=== PATIENT | male | born 1980 | race Caucasian/White ===

== ENCOUNTER 2022-12-27 08:52 | Emergency (ER) | payer OTHER, SELFPAY ==
--- NOTE | ~2022-12-27 | XR_ITS ---
EXAMINATION: XR chest 2V DATE: 12/27/2022 09:27 INDICATION: Left-sided chest pain TECHNIQUE: PA and lateral views of the chest were obtained. COMPARISON: None FINDINGS: The lungs are clear with no focal airspace opacities, pulmonary edema, pleural effusion or pneumothor ax. The cardiomediastinal silhouette is normal. Mild thoracic spondylosis and mild anterior wedging o f a few lower thoracic vertebral bodies. IMPRESSION: 1. No acute cardiopulmonary disease. Reviewed, dictated and finalized at location B.
--- NOTE | 2022-12-27 08:54 | ED.NAVMDI ---
HPI - Nausea/Vomiting/Diarrhea General Chief complaint: Upper Respiratory Infection Stated complaint: L LUNG PAIN/VOMITING/STOMACH ACID/CRAMPING Time Seen by Provider: 12/27/22 08:53 Source: patient Mode of arrival: ambulatory Limitations: no limitations History of Present Illness HPI Narrative: Cb is a 42-year-old male patient presenting to the clinic today with complaints of left-sided lung pain, nausea, vomiting, diarrhea, upset stomach and abdominal cramping for over the past week. He reports nausea, vomiting, and diarrhea have improved. Has been doing a brat diet at home and last bowel movement was this morning and was relatively soft. He is more concerned today about the left-sided lung pain-pneumonia. States the pain is worse when he takes a deep breath. Pain is in the left front chest and radiates to the back. History of pneumonia in the past and states the pain is similar. No history of gall stones, cholecystitis, or pancreatitis. History of GERD-is taking Maalox and Protonix for his GERD symptoms. Denies any blood in his stool or emesis. Related Data Home Medications Medication Instructions Recorded Confirmed No Home Medications 12/27/22 12/27/22 Allergies Allergy/AdvReac Type Severity Reaction Status Date / Time No Known Allergies Allergy Verified 12/27/22 09:16 Review of Systems Review of Systems: Pertinent positives per HPI. Patient denies any fever, chills, rash, headache, visual changes, dizziness, cough, runny nose, sore throat, shortness of breath, chest pain, palpitations, constipation, abdominal pain, or any urinary issues. PMFSH Comments At the time of my signature, I reviewed and agree with the nursing past medical, surgical, social, and family history. There is no relevant family history pertinent to the patient complaint. Exam Narrative: General: Well-developed, well nourished, in no apparent distress Head: Normocephalic, atraumatic Eyes: Pupils equally round and reactive to light bilaterally, EOM intact, sclera and conjunctive clear, no discharge, lids normal Ears: TMs intact and clear, ear canals clear, no drainage, grossly hearing normal. Nose: Nares patent, no discharge, no inflammation, no sinus tenderness. Mouth: Oropharynx without lesions or masses, good dentition, MMM. Neck: Supple, trachea midline, no enlargement of anterior or posterior cervical nodes, no thyroid masses or goiter palpable. Cardio: Regular rate and rhythm, s1 and s2 normal, no murmur appreciated. Resp: Clear to auscultation bilaterally anteriorly and posteriorly, no rhonchi, rales, wheezing or rubs Abdomen: Soft, pliable, bowel sounds present in all quadrants, mid epigastrium tenderness to palpation, no organomegly, no CVAT tenderness. Course Course Emergency Course: Portions of this record may have been created with voice recognition software. Level of Care: Express Care Visit Vital Signs Vital signs: Vital signs reviewed MDM - Nausea/Vomiting/Diarrhea MDM Narrative Medical decision making narrative: At the time of visit patient is resting on the exam table. X-ray of the chest was performed and was negative for pneumonia. I suspect patient has gastroenteritis/gastritis. Patient reports that his symptoms are resolving. Main concern today was to be evaluated for pneumonia. Supportive measures were discussed with the patient he voiced understanding discharge instructions and agrees to treatment plan. Differential Diagnosis Differential diagnosis: Likely traveler's diarrhea, food poisoning, gastroenteritis, dehydration and other (Pneumonia, pleurisy, pancreatitis, cholecystitis, gallstones, gastritis) Imaging Data Radiologist's impression: [facility] [address] [place] [address] XRay Report Signed Patient: Cb Yanes : 1980 MR#: [id number] Age/Sex: 42 / M Acct:[id number] Loc: [facility]? ? ADM Date
[2022-12-27 09:07] VITALS: BP 157/99; PULSE 71; RESP 18; TEMP 36.3; O2SAT 99
== END 2022-12-27 09:50 | disposition home or self-care (01) ==
PROVIDERS: Emergency Provider Nurse Practitioner Family
DX: K52.9 Noninfective gastroenteritis and colitis, unspecified (principal); R07.89 Other chest pain; J45.909 Unspecified asthma, uncomplicated; K21.9 Gastro-esophageal reflux disease without esophagitis
CPT/HCPCS: 71046; 99213; G0463